=== PATIENT | male | born 1955 | race Caucasian/White ===

== ENCOUNTER → 2016-12-14 | Outpatient (CLI) | payer OTHER ==
--- NOTE | 2016-12-14 13:24 | US ---
EXAMINATION TYPE: US abdomen complete DATE OF EXAM: 12/14/2016 10:39 AM COMPARISON: NONE CLINICAL HISTORY: Abnormal Labs D69.6. Low Platelets; scheduled for hernia repair and colonoscopy; as sess spleen and liver per order; prior CABG x 3 EXAM MEASUREMENTS: Liver Length: 16.9 cm Gallbladder Wall: 0.2 cm CBD: 0.4 cm Spleen: 12.1 cm Right Kidney: 10.6 x 5.4 x 4.1 cm Left Kidney: 10.8 x 4.7 x 4.8 cm TECHNOLOGIST IMPRESSION: Pancreas: wnl Liver: round hyperechoic focus seen in right lobe = 1.5 x 1.5 x 1.2cm suggests hemangioma Gallbladder: wnl CBD: wnl Spleen: wnl Right Kidney: complex cyst in mid cortex = 2.0 x 2.0 x 2.1cm Left Kidney: lower pole cyst = 1.1 x 1.2 x 1.2cm Upper IVC: wnl Abd Aorta: intimal wall thickening is noted distal aorta and into bilateral SANDER Visualized pancreas is unremarkable. Aorta shows no evidence of aneurysmal change. 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 Liver is fairly homogeneous echotexture with a 1.5 cm round hyperechoic lesion anteriorly upper aspec t a vertebral hemangioma. No ductal dilatation is seen. Gallbladder is felt within normal limits. Com mon bile duct is not dilated. There is 2 cm cyst mid pole level right kidney with a thin septation. Spleen is upper limits of arcelia l in size without focal intrasplenic mass. There is 1.2 cm simple appearing cyst lower pole level lef t kidney. IMPRESSION: Spleen and liver are normal in size. A 1.5 cm hyperechoic lesion right hepatic lobe super iorly favors hemangioma, advise multiphasic contrast-enhanced liver protocol CT or MRI however to rul e out other etiologies.
== END | disposition home or self-care (01) ==
LOC: RADUSWWP 09:57
PROVIDERS: ATTEND Internal Medicine Hematology & Oncology
DX: K76.9 Liver disease, unspecified (principal); D69.6 Thrombocytopenia, unspecified
CPT/HCPCS: 76700

== ENCOUNTER → 2017-01-17 | Outpatient (CLI) | payer OTHER ==
[2017-01-17 16:40] LABS: Basophils % (A) 1 %; CHCM 32.9; Eosinophils # (A) 0.5 k/uL (0-0.7); Eosinophils % (A) 10 %; HCT 39.8 % (39.0-53.0); HDW 2.37; HGB 13.1 gm/dL (13.0-17.5); Luc # (Auto) 0.09; Luc % (Auto) 2; Lymphocytes # (A) 1.4 k/uL (1.0-4.8); Lymphocytes % (A) 25 %; MCH 32.2 pg (25.0-35.0); MCV 97.7 fL (80.0-100.0); Mean Platelet Volume 10.9; Monocytes # (A) 0.3 k/uL (0-1.0); Monocytes % (A) 6 %; Neutrophils # (A) 3.2 k/uL (1.3-7.7); Neutrophils % (A) 58 %; RBC 4.08 m/uL (4.30-5.90); RDW 13.1 % (11.5-15.5); WBC 5.5 k/uL (3.8-10.6); WBC (Perox) 6.02
[2017-01-17 17:09] LABS: Large Platelets Present; Manual Review Performed
== END | disposition home or self-care (01) ==
LOC: LABPAT 16:06
PROVIDERS: ATTEND Anesthesiology
DX: Z01.818 Encounter for other preprocedural examination (principal)
CPT/HCPCS: 85025; 93005

== ENCOUNTER 2017-01-18 09:00 | Day surgery (SDC) | payer OTHER ==
[~2017-01-18 09:00] MED LIST: DEXAMETHASONE SOD PHOSPHATE 10 MG/ML 1 ML VIAL IV ONE; HEPARIN SODIUM,PORCINE 5,000 UNIT/ML 1 ML VIAL SQ ONE; HYDROmorphone 1 MG/ML 1 ML SYRINGE IVP PRN; MIDAZOLAM 2 MG/2 ML VIAL IV PRN; ONDANSETRON 4 MG/2 ML VIAL IVP ONE; ceFAZolin 2 GM in SODIUM CHLORIDE 0.9% 100 ML IVPB ONE
[2017-01-18] MEDS ORDERED: LIDOCAINE 1% 20 ML VIAL (10MG/ML) FOR IV START INTRADERMA ONE (10:21)
[2017-01-18] MEDS: LACTATED RINGERS 1,000 ML IV SCH (10:26)
[2017-01-18] MEDS ORDERED: HYDROmorphone (PF) 1 MG/ML ONE (12:21)
[2017-01-18] MEDS ORDERED: ROCURONIUM BROMIDE 10 MG/ML 10 ML VIAL IV ONE (12:21)
[2017-01-18] MEDS ORDERED: PROPOFOL 10 MG/ML 20 ML VIAL IV ONE (12:21)
[2017-01-18] MEDS ORDERED: NEOSTIGMINE 1 MG/ML 10 ML VIAL ONE (12:21)
[2017-01-18] MEDS ORDERED: fentaNYL (PF) 50 MCG/ML 2 ML AMP ONE (12:21)
[2017-01-18] MEDS ORDERED: GLYCOPYRROLATE 0.2 MG/ML 2 ML VIAL ONE (12:21)
[2017-01-18] MEDS ORDERED: SUCCINYLCHOLINE CHLORIDE 100 MG/5 ML SYR IV ONE (12:21)
[2017-01-18] MEDS ORDERED: MIDAZOLAM 2 MG/2 ML VIAL ONE (12:21)
[2017-01-18] MEDS ORDERED: ePHEDrine 50 MG/ML 1 ML AMP ONE (12:21)
[2017-01-18] MEDS ORDERED: LIDOCAINE 1% INJ 10MG/ML (20 ML MDV) ONE (12:21)
[2017-01-18] MEDS ORDERED: BUPIVACAIN-EPI 0.25%-1:200,000 30 ML VIAL SQ ONE ×2 (12:50)
[2017-01-18 14:36] VITALS: RESP 18; TEMP 99.6
[2017-01-18] MEDS ORDERED: KETOROLAC 30 MG/ML 1 ML VIAL IVP ONE (14:43)
[2017-01-18 15:49] VITALS: BP 102/60; PULSE 58
--- NOTE | 2017-01-18 16:08 | P.OP ---
Date of Procedure: 01/18/17 Preoperative Diagnosis: Symptomatic left inguinal hernia Postoperative Diagnosis: Direct left inguinal hernia Procedure(s) Performed: Robot-assisted laparoscopic repair of left inguinal hernia with mesh Implants: 10 x 15 Bard Pro precast concrete ironworker mesh Anesthesia: HEENA Surgeon: Redd Vargas Estimated Blood Loss (ml): 5 Pathology: none sent Condition: stable Disposition: PACU Operative Findings: 3 cm direct inguinal hernia containing fat Critical view of the myopectineal orifice was obtained and there were no other hernias Description of Procedure: Informed consent was obtained patient and then The patient was brought to the operating room and placed in supine position. General anesthesia with endotracheal intubation was performed as per anesthesia team. A llamas catheter was inserted under sterile aseptic precautions. Chlorhexidine was used to prep the skin followed by application of sterile drapes . He was placed in the lithotomy position.A timeout was performed to verify correct patient, correct procedure and correct side. Patient was confirmed to receive perioperative IV antibiotics, subcutaneous heparin 5000 units and bilateral SCDs were placed. The left upper quadrant point was identified and a stab incision was made. Veress needle was introduced and placement was confirmed with the help of the drop test. The abdomen was then insufflated to 15 mmHg. Once that was done 5 mm port was introduced into the left upper quadrant using the Optiview technique after which a 12 mm port was placed in the supraumbilical position and 2 8 mm ports were placed in the right and left upper quadrants under direct vision. The robot was then docked with the central camera port and the 2 side working ports. The 30 degree up scope was introduced and the abdomen down through the 12 mm port site. After taking the appropriate instruments the median umbilical fold was retracted laterally towards the left side a small incision was made at the junction of the umbilical fold and the peritoneum and carried all the way laterally thus creating a small plane in the preperitoneal space. This was further dissected with the help of blunt dissection using gentle stroking maneuvers all the way down to Dank ligament medially and laterally we went inferior exposing the vessels inferiorly. The vas was identified and the hernia sac was teased out with the help of blunt dissection and once it was reduced, the cord structures were inspected and there was no indirect inguinal hernia. There was a lipoma of the cord which was pulled out of the way so as to allow for good mesh placement. Once the critical view for the myopectineal orifice and obtained the Bard Pro precast concrete ironworker mesh was introduced in the abdominal cavity with the lower part above the level of the peritoneal fold was then unfolded so that it covered all the orifices and covered the Dank's ligament medially once again pain positioned perfectly to seal was applied to the inferior edge of the mesh as well as around the Dank's ligament after which the peritoneal flaps were closed with the help of running 20V lock suture. Small hole in the peritoneum was closed with the help of 2-0 Vicryl and that incorporated the hernia sac. once that was done procedure was completed all incisions and camera was removed and a laparoscope was introduced and the 12 mm port site was closed with the help of a Dylan Ari the direct vision after which gas was turned off abdomen was thoroughly desufflated skins was closed with the help of 4-0 Monocryl and Dermabond. Llamas catheter was removed patient was extubated and taken to recovery room in stable condition patient tolerated the procedure well there were no complications
== END 2017-01-18 16:30 | disposition home or self-care (01) ==
LOC: OR 09:00
PROVIDERS: ATTEND Surgery
DX: K40.90 Unilateral inguinal hernia, without obstruction or gangrene, not specified as recurrent (principal); I10 Essential (primary) hypertension; E78.2 Mixed hyperlipidemia; I25.5 Ischemic cardiomyopathy; F17.210 Nicotine dependence, cigarettes, uncomplicated; I25.2 Old myocardial infarction; Z79.899 Other long term (current) drug therapy; Z79.82 Long term (current) use of aspirin; Z95.1 Presence of aortocoronary bypass graft
CPT/HCPCS: 49650; S2900